=== PATIENT | female | born 1935 | race American Indian/Alaskan Native ===

== ENCOUNTER 2021-10-24 17:38 | Inpatient (IN) | payer MEDICARE ==
--- NOTE | 2021-10-24 18:18 | Emergency Department Report ---
HPI - General Chief Complaint: Neuro Symptoms/Deficit Time Seen by Provider: 10/24/21 18:00 - HPI HPI: Room 4 Patient is 85-year-old female present with chief complaint of inability to speak. The patient states she was attempting to talk to her daughter approximately 1 hour ago when she says her words would not come out. Patient states this lasted approximately 5 to 10 minutes. Patient denies ever having paresthesia or weakness at any time. Patient states her symptoms have resolved and currently she feels fine. ED Past Medical Hx - Past Medical History Hx Hypertension: Yes - Surgical History Past Surgical History?: No - Family History Family history: no significant - Social History Smoking Status: Never Smoker Substance Use Type: None ED Review of Systems ROS: Stated complaint: SLURRED SPEECH Other details as noted in HPI Constitutional: no symptoms reported Eyes: denies: eye pain ENT: denies: throat pain Respiratory: no symptoms reported Cardiovascular: denies: chest pain Endocrine: no symptoms reported Gastrointestinal: denies: abdominal pain Genitourinary: denies: dysuria Musculoskeletal: denies: back pain Neurological: other (Dysarthria). denies: headache Physical Exam - Physical Exam Vital Signs: Vital Signs 10/24/21 10/24/21 17:44 18:03 Temperature 98.4 F Pulse Rate 56 L Respiratory 16 Rate Blood Pressure 160/90 [Left] O2 Sat by Pulse 98 98 Oximetry Physical Exam: GENERAL: The patient is well-developed well-nourished female lying on stretcher not appearing to be in acute distress. [] HEENT: Normocephalic. Atraumatic. Extraocular motions are intact. Patient has moist mucous membranes. NECK: Supple. Trachea midline CHEST/LUNGS: Clear to auscultation. There is no respiratory distress noted. HEART/CARDIOVASCULAR: Regular. There is no tachycardia. There is no gallop rub or murmur. ABDOMEN: Abdomen is soft, nontender. Patient has normal bowel sounds. There is no abdominal distention. SKIN: There is no rash. There is no edema. There is no diaphoresis. NEURO: The patient is awake, alert, and oriented. The patient is cooperative. The patient has no focal neurologic deficits. The patient has normal speech. Cranial nerves II through XII grossly intact. Patient able to hold either upper extremity at 45 degree angle for 10-second count without drift. Patient able to hold either lower extremity at 30 degree angle for 5-second count without drift. GCS 15. NIHSS=0 MUSCULOSKELETAL: There is no evidence of acute injury. ED Course Vital Signs 10/24/21 10/24/21 17:44 18:03 Temperature 98.4 F Pulse Rate 56 L Respiratory 16 Rate Blood Pressure 160/90 [Left] O2 Sat by Pulse 98 98 Oximetry ED Medical Decision Making - Lab Data Result diagrams: 10/24/21 18:45 10/24/21 18:45 - EKG Data -: EKG Interpreted by [place] EKG shows normal: sinus rhythm Rate: normal - EKG Data When compared to previous EKG there are: previous EKG unavailable Interpretation: other (No ischemic changes seen) - Radiology Data Radiology results: report reviewed (CT head), image reviewed (CT head) [facility] [address] [place] [address] Cat Scan Report Signed Patient: EVANGELINA COOK MR#: [id number] : 1935 Acct:[id number] Age/Sex: 85 / F ADM Date: 10/24/21 Loc: ED Attending Dr: Ordering Physician: SARAH BAINS MD Date of Service: 10/24/21 Procedure(s): CT head/brain wo con Accession Number(s): [id number] cc: SARAH BAINS MD CT BRAIN: 10/24/2021 INDICATION / CLINICAL INFORMATION: Unable to speak x5-10 minutes. COMPARISON: None available. FINDINGS: BRAIN/INTRACRANIAL STRUCTURES: Unenhanced CT images of the brain demonstrate no evidence of acute abnormality. Ventricles and sulci are prominent in size, consistent with diffuse cerebral atrophy with central predominance. Differential diagnosis would also include normal pressure hydrocephalus. There is no evidence of acute large vessel territory ischemic injury, hemorrhage, or mass. There are no abnormal extra- axial fluid collections. EXTRACRANIAL STRUCTURES: Unremarkable. IMPRESSION: No acute abnormality. Prominent ventriculomegaly. All CT scans at this location are performed using dose reduction to ALARA by means of automated exposure control. Signer Name: Rock Knapp MD Signed: 10/24/2021 7:21 PM Workstation Name: [id number] Transcribed By: PILAR Dictated By: Rock Knapp MD Electronically Authenticated By: Rock Knapp MD Signed Date/Time: 10/24/211920 DD/ 19 TD/TT: - Differential Diagnosis TIA, intracranial mass, ICH Critical care attestation.: If time is entered above; I have spent that time in minutes in the direct care of this critically ill patient, excluding procedure time. ED Disposition Clinical Impression: TIA (transient ischemic attack) Disposition: 09 ADMITTED INPATIENT Is pt being admited?: Yes Does the pt Need Aspirin: Yes Condition: Fair Time of Disposition: 20:08 (Care transferred to hospitalist (Dr. Spence))
--- NOTE | 2021-10-24 19:25 | Cat Scan Report ---
CT BRAIN: 10/24/2021 INDICATION / CLINICAL INFORMATION: Unable to speak x5-10 minutes. COMPARISON: None available. FINDINGS: BRAIN/INTRACRANIAL STRUCTURES: Unenhanced CT images of the brain demonstrate no evidence of acute abn ormality. Ventricles and sulci are prominent in size, consistent with diffuse cerebral atrophy with central pre dominance. Differential diagnosis would also include normal pressure hydrocephalus. There is no evidence of acute large vessel territory ischemic injury, hemorrhage, or mass. There are no abnormal extra-axial fluid collections. EXTRACRANIAL STRUCTURES: Unremarkable. IMPRESSION: No acute abnormality. Prominent ventriculomegaly. All CT scans at this location are performed using dose reduction to ALARA by means of automated expos ure control. Signer Name: Rock Knapp MD Signed: 10/24/2021 7:21 PM Workstation Name: [id number]
[2021-10-24 19:56] LABS: Calcium 9.7 mg/dL (8.4-10.2)
[2021-10-24] MEDS ORDERED: ASPIRIN 325 MG TAB PO ONE (19:59)
[2021-10-24 20:07] LABS: Basophils # (Auto) 0.1 K/mm3 (0.0-0.1); Eosinophils # (Auto) 0.2 K/mm3 (0.0-0.4); Eosinophils % (Auto) 2.4 % (0.0-4.3); Hematocrit 42.4 % (30.3-42.9); Hemoglobin 13.7 gm/dl (10.1-14.3); Lymphocytes # (Auto) 2.5 K/mm3 (1.2-5.4); Lymphocytes % (Auto) 28.7 % (13.4-35.0); Mean Corpuscular HGB Conc 32 % (30-34); Mean Corpuscular Volume 96 fl (79-97); Monocytes # (Auto) 0.6 K/mm3 (0.0-0.8); Monocytes % (Auto) 6.6 % (0.0-7.3); Platelet Count 154 K/mm3 (140-440); Red Blood Count 4.43 M/mm3 (3.65-5.03); Red Cell Distribution Width 13.9 % (13.2-15.2)
[2021-10-24] MEDS ORDERED: ALBUTEROL 2.5 MG/3 ML NEBU IH PRN (20:10)
[2021-10-24] MEDS ORDERED: ACETAMINOPHEN 325 MG TAB PO PRN (20:10)
[2021-10-24] MEDS ORDERED: ONDANSETRON 4 MG/2 ML INJ IV PRN (20:10)
[2021-10-24] MEDS ORDERED: MAGNESIUM HYDROXIDE (MOM) ORAL LIQD UDC PO PRN (20:10)
[2021-10-24] MEDS ORDERED: oxyCODONE /ACETAMINOPHEN 5-325MG TAB PO PRN (20:10)
[2021-10-24] MEDS ORDERED: PROMETHAZINE 25 MG RECT SUPP PR PRN (20:10)
[2021-10-24] MEDS ORDERED: METOCLOPRAMIDE 10 MG TAB PO PRN (20:10)
[2021-10-24] MEDS ORDERED: HYDROmorphone 1 MG/1 ML INJ IV PRN (20:10)
--- NOTE | 2021-10-24 20:10 | History and Physical Report ---
History of Present Illness Chief complaint: I felt lightheaded and my speech was slurred History of present illness: 85 YO Female with HTN, Vascular Dementia, Cerebral Atherosclerosis presents to ED for evaluation. Patient reported "I could not talk and I felt a little dizzy". Patient states that she experienced a sudden onset of lightheadedness followed by slurred speech. EMS was notified and upon arrival the patient was found to be in distress with a new neurologic deficit. A code stroke was called and the patient was transported to [facility] for further care and evaluation of the aforementioned symptoms. The patient was seen and evaluated in the emergency department. All lab and imaging studies reviewed. Patient found to have clinical symptoms consistent with CVA. Patient admitted to medical floor and i nitiated on CVA protocol. Patient has fever, chills, chest pain, palpitation, trauma, productive cough, skin rash, recent contact, known exposure to COVID-19. No prior admission for review. No medication listed at time of admission reconciliation. Advanced care planning conducted in ED. Past History Past Medical History: hypertension Past Surgical History: No surgical history, Other (Reviewed) Social history: single. denies: smoking, alcohol abuse, prescription drug abuse Family history: hypertension Medications and Allergies Allergies Allergy/AdvReac Type Severity Reaction Status Date / Time shellfish derived Allergy Anaphylaxis Verified 10/24/21 20:15 Review of Systems Constitutional: no weight loss, no weight gain, no fever, no chills Ears, nose, mouth and throat: no ear pain, no ear discharge, no decreased hearing Breasts: no change in shape, no swelling, no mass Cardiovascular: no chest pain, no palpitations, no edema, no lightheadedness Respiratory: no cough, no excessive sputum, no shortness of breath, no dyspnea on exertion Gastrointestinal: no abdominal pain, no vomiting, no diarrhea, no hematemesis Genitourinary Female: no pelvic pain, no flank pain, no dysuria, no urgency Rectal: no pain, no incontinence, no bleeding Musculoskeletal: no neck stiffness, no shooting arm pain, no leg numbness/tingling Integumentary: no rash, no pruritis, no redness, no sores, no wounds, no boils Neurological: change in speech, sensory deficit, no head injury, no vertigo, no tic, no confusion, no memory loss Psychiatric: no anxiety, no memory loss, no insomnia, no change in appetite, no disorientation, no hallucinations Endocrine: no heat intolerance, no polyphagia Hematologic/Lymphatic: no easy bruising, no easy bleeding Allergic/Immunologic: no urticaria, no wheezing Exam - Constitutional Vitals: Temp Pulse Resp BP Pulse Ox 98.4 F 56 L 16 160/90 98 10/24/21 17:44 10/24/21 17:44 10/24/21 17:44 10/24/21 17:44 10/24/21 18:03 General appearance: Present: mild distress - EENT Eyes: Present: PERRL ENT: hearing intact, clear oral mucosa - Neck Neck: Present: supple, normal ROM - Respiratory Respiratory effort: normal Respiratory: bilateral: CTA - Cardiovascular Heart Sounds: Present: S1 & S2. Absent: rub, click - Extremities Extremities: pulses symmetrical, No edema Peripheral Pulses: within normal limits - Abdominal General gastrointestinal: Present: soft, non-tender, non-distended, normal bowel sounds Female genitourinary: Present: normal - Integumentary Integumentary: Present: clear, warm, dry - Musculoskeletal Musculoskeletal: gait normal, strength equal bilaterally - Psychiatric Psychiatric: appropriate mood/affect, intact judgment & insight - Neurologic Neurologic: CNII-XII intact, moves all extremities Results - Labs CBC & Chem 7: 10/24/21 18:45 10/24/21 18:45 Labs: Abnormal lab results 10/24/21 Range/Units 18:45 Carbon Dioxide 16 L (22-30) mmol/L BUN 19 H (7-17) mg/dL Glucose 106 H (65-100) mg/dL Assessment and Plan - Patient Problems (1) CVA (cerebral vascular accident) Current Visit: Yes Status: Acute Plan to address problem: CVA protocol: CT head, neuro check, seizure caution, aspiration precaution, fall precautions, physical therapy consult, outpatient therapy consulted, speech therapy consulted, antiplatelet therapy, lipid panel, statin therapy, carotid Doppler, echocardiogram. (2) Vascular dementia Current Visit: Yes Status: Acute Qualifiers: Dementia behavioral disturbance: without behavioral disturbance Qualified Code(s): F01.50 - Vascular dementia without behavioral disturbance Plan to address problem: Verbal prompting, verbal redirection, benzodiazepine therapy as clinical indicated. (3) Cerebral atherosclerosis Current Visit: Yes Status: Acute Plan to address problem: Risk factor reduction, antiplatelet therapy, supportive care. (4) Hypertension Current Visit: Yes Status: Acute Qualifiers: Hypertension type: primary hypertension Qualified Code(s): I10 - Essential (primary) hypertension Plan to address problem: Monitor blood pressure every shift, continue medical management. Permissive hypertension overnight. (5) Malnutrition Current Visit: Yes Status: Acute Qualifiers: Malnutrition type: protein-calorie malnutrition Protein-calorie malnutrition severity: mild Qualified Code(s): E44.1 - Mild protein-calorie malnutrition Plan to address problem: Dietary supplementation, encourage increased protein intake. (6) DVT prophylaxis Current Visit: Yes Status: Acute Plan to address problem: SCD to bilateral lower extremities while in bed (7) Advance care planning Current Visit: Yes Status: Acute Plan to address problem: disease education conducted, care plan discussed, diagnoses discussed, prognosis discussed, patient is full code. Patient acknowledges understanding agreement with care plan.
[2021-10-24 20:21] LABS: INR 0.94 (0.87-1.13)
[2021-10-24 20:22] LABS: Partial Thromboplastin Time 26.1 Sec. (24.2-36.6); Thrombin Time 16.6 Sec. (15.1-19.6)
[2021-10-25] MEDS: ASPIRIN 325 MG TAB PO SCH (09:45)
--- NOTE | 2021-10-25 21:12 | Progress Note ---
Assessment and Plan - Patient Problems (1) CVA (cerebral vascular accident) Current Visit: Yes Status: Acute (2) Vascular dementia Current Visit: Yes Status: Acute Qualifiers: Dementia behavioral disturbance: without behavioral disturbance Qualified Code(s): F01.50 - Vascular dementia without behavioral disturbance (3) Cerebral atherosclerosis Current Visit: Yes Status: Acute (4) Hypertension Current Visit: Yes Status: Acute Qualifiers: Hypertension type: primary hypertension Qualified Code(s): I10 - Essential (primary) hypertension (5) Malnutrition Current Visit: Yes Status: Acute Qualifiers: Malnutrition type: protein-calorie malnutrition Protein-calorie malnutrition severity: mild Qualified Code(s): E44.1 - Mild protein-calorie malnutrition (6) DVT prophylaxis Current Visit: Yes Status: Acute (7) Advance care planning Current Visit: Yes Status: Acute Hospitalist Physical - Constitutional Vitals: Temp Pulse Resp BP Pulse Ox 98.2 F 89 17 138/67 96 10/25/21 19:29 10/25/21 19:29 10/25/21 19:29 10/25/21 19:29 10/25/21 19:29 General appearance: Present: mild distress Results - Labs CBC & Chem 7: 10/24/21 18:45 10/24/21 18:45 Labs: Laboratory Last Values WBC 8.7 K/mm3 (4.5-11.0) 10/24/21 18:45 RBC 4.43 M/mm3 (3.65-5.03) 10/24/21 18:45 Hgb 13.7 gm/dl (10.1-14.3) 10/24/21 18:45 Hct 42.4 % (30.3-42.9) 10/24/21 18:45 MCV 96 fl (79-97) 10/24/21 18:45 MCH 31 pg (28-32) 10/24/21 18:45 MCHC 32 % (30-34) 10/24/21 18:45 RDW 13.9 % (13.2-15.2) 10/24/21 18:45 Plt Count 154 K/mm3 (140-440) 10/24/21 18:45 Lymph % (Auto) 28.7 % (13.4-35.0) 10/24/21 18:45 Finney % (Auto) 6.6 % (0.0-7.3) 10/24/21 18:45 Eos % (Auto) 2.4 % (0.0-4.3) 10/24/21 18:45 Baso % (Auto) 1.0 % (0.0-1.8) 10/24/21 18:45 Lymph # (Auto) 2.5 K/mm3 (1.2-5.4) 10/24/21 18:45 Finney # (Auto) 0.6 K/mm3 (0.0-0.8) 10/24/21 18:45 Eos # (Auto) 0.2 K/mm3 (0.0-0.4) 10/24/21 18:45 Baso # (Auto) 0.1 K/mm3 (0.0-0.1) 10/24/21 18:45 Seg Neutrophils % 61.3 % (40.0-70.0) 10/24/21 18:45 Seg Neutrophils # 5.4 K/mm3 (1.8-7.7) 10/24/21 18:45 PT 13.6 Sec. (12.2-14.9) 10/24/21 18:45 INR 0.94 (0.87-1.13) 10/24/21 18:45 APTT 26.1 Sec. (24.2-36.6) 10/24/21 18:45 Thrombin Time 16.6 Sec. (15.1-19.6) 10/24/21 18:45 Sodium 137 mmol/L (137-145) 10/24/21 18:45 Potassium 4.0 mmol/L (3.6-5.0) 10/24/21 18:45 Chloride 106.1 mmol/L (98-107) 10/24/21 18:45 Carbon Dioxide 16 mmol/L (22-30) L 10/24/21 18:45 Anion Gap 19 mmol/L 10/24/21 18:45 BUN 19 mg/dL (7-17) H 10/24/21 18:45 Creatinine 1.2 mg/dL (0.6-1.2) 10/24/21 18:45 Estimated GFR 51 ml/min 10/24/21 18:45 BUN/Creatinine Ratio 16 % 10/24/21 18:45 Glucose 106 mg/dL (65-100) H 10/24/21 18:45 Calcium 9.7 mg/dL (8.4-10.2) 10/24/21 18:45 Mathew/IV: Voiding Method External Female Catheter Active Medications - Current Medications Current Medications: Generic Name Dose Route Start Last Admin Trade Name Freq PRN Reason Stop Dose Admin Acetaminophen 650 mg 10/24/21 20:10 Acetaminophen 325 Mg Tab PO Q4H PRN Pain, Mild (1-3) Albuterol 2.5 mg 10/24/21 20:10 Albuterol 2.5 Mg/3 Ml Nebu IH Q3HRT PRN Shortness Of Breath Aspirin 325 mg 10/25/21 10:00 10/25/21 09:45 Aspirin 325 Mg Tab PO 325 mg QDAY ODETTE Administration Atorvastatin Calcium 40 mg 10/24/21 22:00 10/25/21 21:07 Atorvastatin 40 Mg Tab PO 40 mg QHS ODETTE Administration Bisacodyl 10 mg 10/24/21 20:10 Bisacodyl 10 Mg Rect Supp KS QDAY PRN Constipation Hydromorphone HCl 0.5 mg 10/24/21 20:10 Hydromorphone 1 Mg/1 Ml Inj IV Q23H PRN Pain , Severe (7-10) Magnesium Hydroxide 30 ml 10/24/21 20:10 Magnesium Hydroxide (Mom) Oral Liqd Udc PO Q4H PRN Constipation Metoclopramide HCl 10 mg 10/24/21 20:10 Metoclopramide 10 Mg Tab PO Q6H PRN Nausea And Vomiting Ondansetron HCl 4 mg 10/24/21 20:10 Ondansetron 4 Mg/2 Ml Inj IV Q8H PRN Nausea And Vomiting Oxycodone/Acetaminophen 1 tab 10/24/21 20:10 Oxycodone /Acetaminophen 5-325mg Tab PO Q16H PRN Pain, Moderate (4-6) Promethazine HCl 25 mg 10/24/21 20:10 Promethazine 25 Mg Rect Supp KS Q6H PRN Nausea And Vomiting Sodium Chloride 10 ml 10/24/21 20:10 10/25/21 09:46 Sodium Chloride 0.9% 10 Ml Flush Syringe IV 10 ml PRN PRN Administration LINE FLUSH
[2021-10-26] MEDS: ASPIRIN 325 MG TAB PO SCH (11:34)
[2021-10-26 16:30] VITALS: BP 147/82
--- NOTE | 2021-10-26 20:48 | Discharge Summary ---
Providers - Providers Date of Admission: 10/24/21 20:12 Attending physician: CAL THRASHER 10/24/21 20:12 Occupational Therapy Evaluate and Treat [CONS] Routine Comment: Reason For Exam: Neuro deficits Physical Therapy Evaluation and Treat [CONS] Routine Comment: Reason For Exam: Neuro deficits 10/24/21 20:14 Speech Therapy Evaluation and Treat [CONS] Routine Reason For Exam: swallow eval Primary care physician: LEAN COACH Hospitalization Condition: Fair Disposition: 01 HOME / SELF CARE / HOMELESS - Discharge Diagnoses (1) CVA (cerebral vascular accident) Status: Acute (2) Vascular dementia Status: Acute Qualifiers: Dementia behavioral disturbance: without behavioral disturbance Qualified Code(s): F01.50 - Vascular dementia without behavioral disturbance (3) Cerebral atherosclerosis Status: Acute (4) Hypertension Status: Acute Qualifiers: Hypertension type: primary hypertension Qualified Code(s): I10 - Essential (primary) hypertension (5) Malnutrition Status: Acute Qualifiers: Malnutrition type: protein-calorie malnutrition Protein-calorie malnutrition severity: mild Qualified Code(s): E44.1 - Mild protein-calorie malnutrition (6) DVT prophylaxis Status: Acute (7) Advance care planning Status: Acute Exam - Constitutional Vitals: Temp Pulse Resp BP Pulse Ox 97.7 F 68 14 147/82 96 10/26/21 16:29 10/26/21 16:29 10/26/21 16:29 10/26/21 16:29 10/26/21 16:29 Plan Follow up with: TIMOTHY ANNE MD [Primary Care Provider] - 7 Days
[2021-10-26] MEDS ORDERED: risperiDONE 0.25 MG TAB PO SCH (22:00)
[2021-10-26] MEDS ORDERED: CETIRIZINE 10 MG TAB PO SCH (22:00)
[2021-10-26] MEDS ORDERED: NON-FORMULARY EACH (Loratadine [Allergy Relief] 10 MG Tablet) PO SCH (22:00)
[2021-10-26] MEDS ORDERED: ASPIRIN 81 MG TAB CHEW PO SCH (22:00)
[2021-10-27] MEDS ORDERED: CHOLECALCIFEROL (VIT D3) 1000 UNIT (25 mcg) TAB PO SCH (10:00)
[2021-10-27] MEDS ORDERED: CALCIUM CARBONATE 648 MG TAB PO SCH (10:00)
[2021-10-27] MEDS ORDERED: POTASSIUM CHLORIDE ER 20 MEQ TAB PO SCH (10:00)
[2021-10-27] MEDS ORDERED: dilTIAZem CD 240 MG CAP PO SCH (10:00)
[2021-10-27] MEDS ORDERED: NON-FORMULARY EACH (Calcium Carbonate [Calcium] 600 MG Tablet) PO SCH (10:00)
[2021-10-27] MEDS ORDERED: hydroCHLOROthiazide 25 MG TAB PO SCH (10:00)
--- NOTE | 2021-10-27 14:05 | Electrocardiograph Report ---
Test Date: 2021-10-24 Test Time: 19:04:26 Pat Name: EVANGELINA COOK Department: Room: A475 1 Gender: F Match Maker: SANTOSH : 1935 Requested By: SARAH BAINS Order Number: [id number] Reading MD: Hannah Xiao Measurements Intervals [place] Rate: 58 P: 102 [place]: 238 QRS: -6 QRSD: 85 T: 44 QT: 413 QTc: 405 Interpretive Statements Sinus rhythm Prolonged [place] interval Probable LVH with secondary repol abnrm No previous ECG available for comparison Electronically Signed On 10-27-2021 14:05:13 EDT by Hannah Xiao
== END 2021-10-26 16:50 | disposition home or self-care (01) | DRG 65 ==
LOC: ED 17:38 → 4A 20:12
PROVIDERS: ADMIT Internal Medicine; ATTEND Internal Medicine
DX: I63.9 Cerebral infarction, unspecified (principal); E44.1 Mild protein-calorie malnutrition; F01.50 Vascular dementia, unspecified severity, without behavioral disturbance, psychotic disturbance, mood disturbance, and anxiety; I10 Essential (primary) hypertension; I67.2 Cerebral atherosclerosis; Z82.49 Family history of ischemic heart disease and other diseases of the circulatory system; Z91.013 Allergy to seafood; Z68.22 Body mass index [BMI] 22.0-22.9, adult
CPT/HCPCS: 36415; 70450; 80048; 85025; 85610; 85670; 85730; 93005; 93306; G0378; C8929